=== PATIENT | male | born 1960 | race Caucasian/White ===

== ENCOUNTER 2023-06-18 10:01 | Outpatient (OUT) | payer OTHER, SELFPAY ==
--- NOTE | 2023-06-18 10:23 | ECG_ITS ---
[facility] Test Date: 2023-06-18 Pat Name: EMILY NASSAR Department: Room: - Gender: Male [employer]: : 1960 Requested By: [id number] Order Number: [id number] Reading MD: KATE CHOI Measurements Intervals [place] Rate: 67 P: 78 [place]: 190 QRS: 91 QRSD: 93 T: 70 QT: 364 QTc: 384 Interpretive Statements SINUS RHYTHM BORDERLINE RIGHT AXIS DEVIATION [QRS AXIS > 90] No previous ECG available for comparison Electronically Signed On 06-19-2023 7:12:48 EST by KATE CHOI
[2023-06-18 11:22] LABS: Basophils Absolute Auto 0.1 10^3/uL (0.0-0.1); Basophils Percent Auto 1.2 % (0.2-2.0); Eosinophils Absolute Auto 0.3 10^3/uL (0.0-0.7); Eosinophils Percent Auto 4.4 % (0.9-7.0); Hematocrit 42.9 % (42.0-54.0); Hemoglobin 14.7 g/dL (14.0-18.0); Immature Granulocytes Abs Auto 0.01 10^3/uL (0.00-0.03); Immature Granulocytes Pct Auto 0.2 % (0.0-0.5); Lymphocytes Absolute Auto 1.5 10^3/uL (1.2-3.8); Lymphocytes Percent Auto 26.6 % (20.5-60.0); Mean Corpuscular HGB Conc 34.3 g/dL (29.9-35.2); Mean Corpuscular Hemoglobin 30.2 pg (25.9-34.0); Mean Corpuscular Volume 88.1 fL (80.0-94.0); Mean Platelet Volume 10.4 fL (9.5-13.5); Monocytes Absolute Auto 0.7 10^3/uL (0.3-0.8); Monocytes Percent Auto 12.2 % (1.7-12.0); Neutrophils Absolute Auto 3.2 10^3/uL (1.4-6.5); Neutrophils Percent Auto 55.4 % (43.0-75.0); Platelet Count 230 10^3/uL (150-450); Red Blood Count 4.87 10^6/uL (4.70-6.10); Red Cell Distribution Width 12.2 % (11.0-15.0); White Blood Count 5.7 10^3/uL (4.0-11.0)
[2023-06-18 11:37] LABS: BUN Creatinine Ratio 12.7; Calcium 9.8 mg/dL (8.5-10.1); Carbon Dioxide 26.6 mmol/L (21.0-32.0); Chloride 105 mmol/L (98-107); Estimated GFR (African America >60 (>=60); Estimated GFR (Non-African Ame >60 (>=60); Glucose 71 mg/dL (74-106); Potassium 4.6 mmol/L (3.5-5.1); Sodium 140 mmol/L (136-145)
== END 2023-06-18 10:02 | disposition home or self-care (01) ==
PROVIDERS: Visit Provider Urology
DX: Z01.812 Encounter for preprocedural laboratory examination (principal); N20.0 Calculus of kidney
CPT/HCPCS: 36415; 80048; 85025; 93005

== ENCOUNTER 2023-07-02 11:29 | Day surgery (SDC) | payer OTHER, SELFPAY ==
[2023-06-18 10:45] VITALS: BP 136/82; PULSE 70; RESP 16; TEMP 36.3; O2SAT 97; BMI 29.1
[2023-07-02] VITALS (15 sets, daily range): BP systolic 155–206; BP diastolic 66–97; PULSE 59–82; RESP 12–62; TEMP 36.4–36.6; O2SAT 98–100; BMI 29.0
--- OUTSIDE RECORDS SUMMARY | 2023-07-02 11:41 | XMS_ITS | CCD ---
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 [employer] Name Role Phone Darwin Garcia Primary Care Physician Unavail able ELYSE RAMOS Admitting Unavailable ELYSE RAMOS Attending Unavailable Cyn Corona Attending Unavailable Cyn Corona Attending Unavailable ELYSE RAMOS Attending Unavailable Cyn Corona Attending Unavailable ELYSE RAMOS Admitting Unavailable RICHARDELYSE STARK Attending Unavailable RICHARDSISSY STARKELYSE E Referring Unavailable RICHARDSISSY STARKELYSE E Attending Unavailable RICHARD, ELYSE E Referring Unavailable RICHARD, ELYSE Zina Admitting Unavailable REFERRAL, SELF Attending Unavailable Xiomaraey, Darwin J Consulting Unavailable Rupertmley, Darwin J Consulting Unavailable Rupertmley, Darwin J Consulting Unavailable Rupertmley, Darwin J Consulting Unavailable Cromley, Darwin J Consulting Unavailable Cromley, Darwin J Consulting Unavailable Cromley, Darwin J Consulting Unavailable Rupertmley, Darwin J Consulting Unavailable Rupertmley, Darwin J Consulting Unavailable Rupertmley, Darwin J Consulting Unavailable Rupertmley, Darwin J Primary Care Physician Unavail able Problems Problem Classification Problem Date Documented Da te Episodic/Chronic Calculus of urinary tract (4 sources) Kidney stone; Translations: [Calculus of kidney] Onset: 04-01-2023 Episodic Genitourinary symptoms and ill-defined conditions (5 sources) Microscopic hematuria; Translations: [Asymptomatic microscopic hematuria] Onset: 04-01-2023 Episodic Other male genital disorders (5 sources) Disorder of male genital organ 02-11-2023 Episodic Other male genital disorders (5 sources) Swelling of scrotum 09-14-2020 Episodic Other male genital disorders (1 source) Hydrocele of testis; Translations: [Hydrocele, unspecified] Onset: 04-01-2023 Episodic Other nutritional; endocrine; and metabolic disorders (5 sources) Body mass index 25-29 - overweight 10-06-2019 Episodic Other screening for suspected conditions (not mental disorders or infectious disease) (1 source) Encounter for screening for malignant neoplasm of prostate; Translations: [Screening for malignant neoplasm done] Onset: 04-01-2023 Episodic Unclassified (5 sources) Asymptomatic microscopic hematuria 02-11-2023 Unclassified (5 sources) Patient encounter status 02-11-2023 Results Test Name Value Interpretation Reference Range Facil ity Lab Reportson 06-20-2023 Lab Reports [id number] IFF Normal [facility] Insurance Correspondenceon 1 08-17-2022 Insurance Correspondence [id number] Normal [facility] Patient Educationon 04-02-20 Patient Education Nephrology Dietary Guidelines to Help Prevent Kidney Stones Kidney stones are deposits of minerals and salts that form inside your kidneys. Your risk of developing kidney stones may be greater depending on your diet, your lifestyle, the medicines you take, and whether you have certain medical conditions. Most people can lower their chances of developing kidney stones by following the instructions below. Your dietitian may give you more specific instructions depending on your overall health and the type of kidney stones you tend to develop. What are tips for following this plan? Reading food labels ? Choose foods with no salt added or low-salt labels. Limit your salt (sodium) intake to less than 1,500 mg a day. ? Choose foods with calcium for each meal and snack. Try to eat about 300 mg of calcium at each meal. Foods that contain 200?500 mg of calcium a serving include: ? 8 oz (237 mL) of milk, lzngsbv-mxppxbrkqcle-usjuj milk, and calcium-fortifiedfruit juice. Calcium-fortified means that calcium has been added to these drinks. ? 8 oz (237 mL) of kefir, yogurt, and soy yogurt. ? 4 oz (114 g) of tofu. ? 1 oz (28 g) of cheese. ? 1 cup (150 g) of dried figs. ? 1 cup (91 g) of cooked broccoli. ? One 3 oz (85 g) can of sardines or mackerel. Most people need 1,000?1,500 mg of calcium a day. Talk to your dietitian about how much calcium is recommended for you. Shopping ? Buy plenty of fresh fruits and vegetables. Most people do not need to avoid fruits and vegetables, even if these foods contain nutrients that may contribute to kidney stones. ? When shopping for convenience foods, choose: ? Whole pieces of fruit. ? Pre-made salads with dressing on the side. ? Low-fat fruit and yogurt smoothies. ? Avoid buying frozen meals or prepared deli foods. These can be high in sodium. ? Look for foods with live cultures, such as yogurt and kefir. ? Choose high-fiber grains, such as whole-wheat breads, oat bran, and wheat cereals. Cooking ? Do not add salt to food when cooking. Place a salt shaker on the table and allow each person to add his or her own salt to taste. ? Use vegetable protein, such as beans, textured vegetable protein (TVP), or tofu, instead of meat in pasta, casseroles, and soups. Meal planning ? Eat less salt, if told by your dietitian. To do this: ? Avoid eating processed or pre-made food. ? Avoid eating fast food. ? Eat less animal protein, including cheese, meat, poultry, or fish, if told by your dietitian. To do this: ? Limit the number of times you have meat, poultry, fish, or cheese each week. Eat a diet free of meat at least 2 days a week. ? Eat only one serving each day of meat, poultry, fish, or seafood. ? When you prepare animal protein, cut pieces into small portion sizes. For most meat and fish, one serving is about the size of the palm of your hand. ? Eat at least five servings of fresh fruits and vegetables each day. To do this: ? Keep fruits and vegetables on hand for snacks. ? Eat one piece of fruit or a handful of berries with breakfast. ? Have a salad and fruit at lunch. ? Have two kinds of vegetables at dinner. ? Limit foods that are high in a substance called oxalate. These include: ? Spinach (cooked), rhubarb, beets, sweet potatoes, and Cymro chard. ? Peanuts. ? Potato chips, bhutanese fries, and baked potatoes with skin on. ? Nuts and nut products. ? Chocolate. ? If you regularly take a diuretic medicine, make sure to eat at least 1 or 2 servings of fruits or vegetables that are high in potassium each day. These include: ? Avocado. ? Banana. ? [place], prune, carrot, or tomato juice. ? Baked potato. ? Cabbage. ? Beans and split peas. Lifestyle ? Drink enough fluid to keep your urine pale yellow. This is the most important thing you can do. Spread your fluid intake throughout the day. ? If you drink alcohol: ? Limit how much you use to: ? 0?1 drink a day for women who are not . ? 0?2 drinks a day for men. ? Be aware of how much alcohol is in your drink. In the [place] one drink equals one 12 oz bottle of beer (355 mL), one 5 oz glass of wine (148 mL), or one 1? oz glass of hard liquor (44 mL). ? Lose weight if told by your health care provider. Work with your dietitian to find an eating plan and weight loss strategies that work best for you. General information ? Talk to your health care provider and dietitian about taking daily supplements. You may be told the following depending on your health and the cause of your kidney stones: ? Not to take supplements with vitamin C. ? To take a calcium supplement. ? To take a daily probiotic supplement. ? To take other supplements such as magnesium, fish oil, or vitamin B6. ? Take yggt-mao-rdiddzj and prescription medicines only as told by your health care provider. These include supplements. What foods should I limit? Limit your in (more content not included)... Normal [facility] Screenson 04-02-2023 Screens [id number] :127 Normal [facility] Screens [id number] :127 Normal [facility] Urology Office/Clinic Noteon 04-02-2023 Urology Office/Clinic Note Chief Complai nt F/U for CT results HPI Staff Pt previously seen by RYAN 02/11/23 as a new pt due to Hydrocele & Microscopic Hematuria. PSA drawn at that time 2.6 NEG C&S at that time UA *4-20 RBC's CBC/CMP also drawn Scrotal US 02/14/23 CTU 03/27/23 Pt is scheduled for Cysto & Cytology 04/07/23 w/KML IPSS 5 CACHORRO 24 Dysuria: _denies Incomplete bladder emptying: denies Hematuria: denies visible blood Frequency: _every couple hours Urgency: _denies Nocturia: most 2x nightly Stream: denies hesitation, normal stream Leaking: _denies Post void dripping: denies Wearing pads/ Depends: denies Urge incontinence: denies Stress incontinence: denies Incontinence without Sensory Awareness: denies Abdominal pain: denies Flank pain: denies Sexual complaints: denies History of Present Illness Tests reviewed: reviewed UA, Scrotal US and CTU. I have reviewed the previous health record information and history for this patient from Elyse Ramos PA-C. I have reviewed and verified the staff HPI to be accurate for this encounter. There have been no associated fever, chills, flank pain, or blood in the urine. Denies any urinary infections since last encounter. Review of Systems PHQ Score Initial Depression Screen Score: 0 ROS - Provider Constitutional: denies weight loss, denies hot flashes. Eyes: denies eye problems. Gastrointestinal: denies nausea, denies vomiting. Cardiovascular: denies chest pain or angina. Integumentary: no dryness Musculoskeletal: denies musculoskeletal symptoms. ENMT: denies otolaryngeal symptoms. Respiratory: no shortness of breath. Heme/Lymph: denies easy bleeding tendency, denies easy bruising tendency. Psychiatric: no confusion, no anxiety. Genitourinary: See HPI. Physical Exam Vitals & Measurements T: 36.8 ?C(Temporal Artery) HR: 88(Peripheral) BP: 142/78 HT: 70 in HT: 177 cm WT: 89 kg WT: 195.8 lb BMI: 28.41 General Appearance: alert, no distress, well nourished, well developed male. Genitourinary: Flank Pain: none. Bladder: nonpalpable. Assessment/Plan 63 yo male here for follow up of AMH, L hydrocele and new findings of kidney stone in setting of solitary kidney s/p donor nephrectomy 1. Hydrocele (N43.3: Hydrocele, unspecified) Scrotal US 09/18/20 - small left and trace right hydroceles. small bilat epididymal head cysts, otherwise neg scrotal US Scrotal US 02/14/23 - large Lt hydrocele, inc from prior Denies fluctuation in size. Discussed findings with pt. Pt states that its not bothersome, seems to have grown bigger. Discussed treatment options if becomes symptomatic such as hydrocelectomy. Risks/benefits discussed Advised pt that the scrotal support does not reduce the size and just relieve bothersome sxs. -Cont monitoring, conservative mgmt 2. Asymptomatic microscopic hematuria (R31.21: Asymptomatic microscopic hematuria) CTU 03/27/23 - No urgent findings UCx 02/11/23 - negative, UA RBC 4-20 Ua today shows moderate blood. High risk based on age per AUA guidelines. Discussed the reasoning of the cysto and the risks and benefits were counseled. No hx of cancer. Pt had donated his kidney to his sister. Counseled on risk factors. Denies visible blood in urine. Discussed potential etiologies including malignancy, stone, cannot exclude concomitant processes. Advised pt that if he would like to cancel his cysto he undergoes ureteroscopy for stone treatment, as bladder would be evaluated at that time. Risk of missed malignancy were discussed. -Cont with cysto as scheduled friday under local. The risks and benefits for cystoscopy have been discussed. The risks include bleeding, infection, and irritation of the bladder and urinary channel, among others. The patient, after being informed of procedural details and after questions have been answered, wishes to proceed. Full informed consent has been obtained. Will order Local anesthesia. 3. 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 PSA 03/06/23 - 2.6 Prostate Volume 75gms. Denies bother IPSS 5 Declines medical treatment at this time see #5 4. Renal stone (N20.0: Calculus of kidney) CTU 03/27/23 - renal stone 8 mm left upper pole. Solitary kidney Discussed imaging findings with pt. Discussed management options including monitoring vs intervention including extracorporeal shockwave lithotripsy vs ureteroscopy with laser lithotripsy/stone basket extraction possible stent. Risks/benefits of each were discussed including but not limited to: monitoring- growth, spontaneous passage, renal failure, infection, pain; ESWL- bleeding, hematoma, pain, infection, inability to break up the stone, ureteral obstruction, cardiac arrhythmias, damage to surrounding structures and need for additional procedures; ureteroscopy - bleeding, pain, infection, damage to surrounding structures, ureteral perforation, stricture, inability to t (more content not included)... Normal [facility] Comment on above: Result Comment: Elec tronically Signed By: Cyn Corona MD\.br\Date and Time Signed: 04/02/23 12:26 EDT\.br\Electronically Co-Signed By: Keyana Stauffer\.br\Date and Time Co-Signed: 04/02/23 12:[address] Urogramon 03-27-2023 CT Urogram Exam Date/Time: 03/27/2023 10:48 EDT Reason for Exam: R31.21;Other (please specify) Report IMPRESSION: Status post left nephrectomy. There is a 8 mm heavily calcified stone in the inferior pole of the right kidney. There is no hydronephrosis or hydroureter, there is prompt nephrogram with prompt excretion of contrast. The urinary bladder is within normal limits. The prostate gland there is an estimated volume of 75 mm and multiple calcifications in the right posterior cerebral. Please refer to recent ultrasound for discussion of the large left hydrocele. EXAMINATION: CT Urogram HISTORY: R31.21 COMPARISON: Scrotal ultrasound from 02/14/2023 TECHNIQUE: Contiguous axial CT sections of the abdomen and pelvis. A triple phase study is performed before, during and after administration of IV contrast to perform a CT urogram.. Sagittal and coronal reformats have been obtained. All CT scans at this facility use dose modulation, iterative reconstruction, and/or weight based dosing when appropriate to reduce radiation dose to as low as reasonably achievable. FINDINGS Lung bases:Visualized lung bases show no significant pathology Liver: The visualized portions of the liver are normal in size and attenuation. There are no focal solid or cystic lesions. There is no intra or extrahepatic bile duct dilatation. Gallbladder: No calcified gallstones. Normal gallbladder wall. No pericholecystic fluid. Spleen: There are no focal lesions or calcifications in the visualized portions of the spleen. There is no splenomegaly Pancreas: The pancreas is normal in size and attenuation without focal lesions or dilatation of the pancreatic duct. Adrenal glands are negative. Kidneys: The right kidney is without solid or cystic lesions. There is no Report hydronephrosis. There is a 8 mm heavily calcified stone in the inferior pole of the right kidney. There is a 1.5 cm cyst in the inferior pole of the right kidney. There is a prompt nephrogram after contrast with prompt excretion of contrast into nondilated collecting system, there is no hydroureter. Status post left nephrectomy. Urinary bladder: The urinary bladder is within normal limits. There are no radiopaque filling defects or wall abnormalities. The prostate gland measures 5.6 x 4.6 cm transverse by 5.6 cm craniocaudal Estimated volume mL. There are multiple calcifications in the right posterior zone. Bowel: There are no distended loops of bowel. The appendix is unremarkable. The colon is within normal limits without surrounding inflammation. Nodes: No lymphadenopathy. Aorta: There is no abdominal aortic aneurysm. Peritoneum: No free fluid or free air. Pelvis: There are no solid or cystic lesions. Abdominal wall: The abdominal wall is intact. Bones :There are no acute osseous changes. Soft tissues: There is a large left hydrocele constipation. Recent ultrasound. Ordering Provider: , FINAL REPORT Dictated: 03/27/2023 12:33 pm Yaw Sr MD, V. Signed (Electronic Signature): 03/27/2023 12:33 pm Signed by: Yaw Sr MD, V. Transcribed by: DAISY Technologist: AO Technical Comments GFR (mL/min/1/73m2) <60 Contrast: Isovue 300 Contrast amount in ml's: 100 Rectal Contrast Given? No Normal [facility] Consent for Treatmenton 03-14 Consent for Treatment [id number]:127 Normal [facility] Insurance Correspondenceon 0 03-18-2023 Insurance Correspondence [id number]#[id number]:127 Normal [facility] Consent for Treatmenton 02-12 Consent for Treatment [id number]#[id number]:127 Normal [facility] Gary 2023 ALT No additional P-5'-P [Catalytic activity/Vol] 21 Int._Unit/L Normal 6-46 [facility] Comment on above: Performed By: #### 2 821231, 9848488, 5995570, 01357762, 9759306, 64623702, 7024244 ####[facility] [address] [place] [address] Kg 2023 AST [Catalytic activity/Vol] 20 Int._Unit/L Normal 5-4 3 [facility] Comment on above: Performed By: #### 2 707892, 8944343, 3132872, 36319756, 7189358, 28881545, 7440566 ####[facility] [address] [place] [address] BMPon 2023 Anion gap [Moles/Vol] 10 mmol/L Normal 6-16 [facility] Comment on above: Performed By: #### 2 583117, 3826341, 5627288, 69760652, 9217438, 51908065, 3238550 ####[facility] [address] [place] [address] Calcium [Mass/Vol] 10.3 mg/dL Normal 8.9-11.1 [facility] Comment on above: Performed By: #### 2 230569, 8736441, 3710062, 78586759, 7694887, 21497261, 7784246 ####[facility] [address] [place] [address] Chloride [Moles/Vol] 111 mmol/L Normal 101-111 [facility] Comment on above: Performed By: #### 2 699237, 8587678, 2193901, 80098501, 9217301, 23756512, 2014603 ####[facility] [address] [place] [address] CO2 [Moles/Vol] 26 mmol/L Normal 21-31 [facility] Comment on above: Performed By: #### 2 843077, 6354690, 2518951, 23809548, 1399576, 49607786, 2470459 ####[facility] [address] [place] [address] Creatinine [Mass/Vol] 1.2 mg/dL Normal 0.5-1.3 [facility] Comment on above: Performed By: #### 2 513818, 0904297, 3222821, 39416831, 6066044, 37183076, 6745314 ####[facility] [address] [place] [address] Glucose [Mass/Vol] 85 mg/dL Normal 55-199 [facility] Comment on above: Result Comment: If t his glucose result represents a fasting glucose, interpretation should refer to the following reference range: 55-99 mg/dL Performed By: #### 2 678780, 6159584, 8030501, 35102733, 0028254, 27932618, 4024287 ####[facility] [address] [place] [address] Potassium [Moles/Vol] 4.7 mmol/L Normal 3.5-5.3 [facility] Comment on above: Performed By: #### 2 384603, 3454846, 7956498, 05934678, 1471668, 80391256, 0705520 ####[facility] [address] [place] [address] Sodium [Moles/Vol] 142 mmol/L Normal 135-145 [facility] Comment on above: Performed By: #### 2 224401, 9943043, 4553871, 63950380, 2062494, 21203242, 3101459 ####[facility] [address] [place] [address] Urea nitrogen [Mass/Vol] 15 mg/dL Normal 5-21 [facility] Comment on above: Performed By: #### 2 360459, 5760300, 1292835, 58229623, 8493287, 01431833, 8776224 ####[facility] [address] [place] [address] Urea nitrogen/Creatinine [Ma ss ratio] 12 No Units Normal 10-20 [facility] Comment on above: Performed By: #### 2 273826, 1463767, 6182234, 72490185, 8629194, 51705958, 8530675 ####[facility] [address] [place] [address] CBC w/Indiceson 2023 Erythrocyte distribution wid th (RBC) [Ratio] 13.4 % Normal 10.9-14.2 [facility] Comment on above: Performed By: #### 2 553733, 8790980, 2387106, 95739029, 0876822, 49103438, 4903485 ####[address] [place] [address] Hematocrit (Bld) [Volume fraction] 44.3 % Normal 37.7-49.0 [facility] Comment on above: Performed By: #### 2 354925, 9597501, 9516627, 23704591, 1289203, 82969627, 2032214 ####[facility] [address] [place] [address] Hemoglobin (Bld) [Mass/Vol] 15.5 g/dL Normal 13.5-17. 5 [facility] Comment on above: Performed By: #### 2 188390, 2209532, 8416514, 74487222, 3455602, 25884817, 9026951 ####[facility] [address] [place] [address] MCH (RBC) [Entitic mass] 30.7 pg Normal 27.0-34.0 [facility] Comment on above: Performed By: #### 2 762180, 8908730, 7840259, 97697943, 2406122, 92489096, 8643651 ####[address] [place] [address] MCHC (RBC) [Mass/Vol] 35.1 g/dL Normal 31.4-36.0 [facility] Comment on above: Performed By: #### 2 062869, 8580836, 8650413, 55631474, 8938974, 88096298, 4512367 ####[facility] [address] [place] [address] MCV (RBC) [Entitic vol] 87.5 fL Normal 80.0-100.0 F [facility] Comment on above: Performed By: #### 2 437428, 0644852, 1678737, 64054417, 8375010, 10989533, 9090092 ####[facility] [address] [place] [address] Platelet mean volume (Bld) [Entitic vol] 8.8 fL Normal 6.4-10.8 [facility] Comment on above: Performed By: #### 2 208680, 6629632, 8144983, 66085025, 0921650, 55657102, 9755134 ####[facility] [address] [place] [address] Platelets (Bld) [#/Vol] 236.0 E9/L Normal 150.0-500.0 [facility] Comment on above: Performed By: #### 2 139417, 1646796, 9324306, 61475123, 6654012, 85273875, 2370940 ####[address] [address] RBC (Bld) [#/Vol] 5.1 E12/L Normal 4.3-5.9 [facility] Comment on above: Performed By: #### 2 300166, 8632820, 3466138, 03689283, 5274345, 14483956, 8082096 ####[facility] [address] [place] [address] WBC corrected for nucl RBC A uto (Bld) [#/Vol] 6.1 E9/L Normal 4.0-11.0 [facility] Comment on above: Performed By: #### 2 811355, 1191867, 9590335, 81092365, 7849526, 11775030, 5753955 ####[facility] [address] [place] [address] Lipid Panelon 2023 Cholesterol [Mass/Vol] 198 mg/dL Normal 120-200 [facility] Comment on above: Performed By: #### 2 420826, 8887862, 0051897, 42592628, 7989720, 82995311, 1772718 ####[facility] [address] [place] [address] Cholesterol in HDL [Mass/Vol] 45 mg/dL Invalid Interpretation Code [facility] Comment on above: Result Comment: HDL > or equal to 60 mg/dL: Low cardiovascular risk HDL < 40 mg/dL : High cardiovascular risk Performed By: #### 2 072047, 8665554, 0196862, 51303496, 2546594, 68592221, 8538022 ####[facility] [address] [place] [address] Cholesterol in LDL [Mass/Vol] 125 mg/dL Normal <=129 [facility] Comment on above: Performed By: #### 2 049589, 4636996, 4600320, 50161633, 8082138, 02918601, 3224451 ####[facility] [address] [place] [address] Cholesterol in VLDL [Mass/Vol] 13 mg/dL Normal 7-40 [facility] Comment on above: Performed By: #### 2 247595, 6419914, 5263120, 02354124, 6767290, 63940472, 7793981 ####[facility] [address] [place] [address] Triglyceride [Mass/Vol] 67 mg/dL Normal <=149 F [facility] Comment on above: Performed By: #### 2 344004, 6903246, 4402480, 29033428, 9635900, 24342677, 7697380 ####[facility] [address] [place] [address] PSA Totalon 2023 Prostate specific Ag [Mass/Vol] 2.6 ng/mL Normal 0.1- 3.5 [facility] Comment on above: Result Comment: The concentration of PSA determined by different manufacturers can vary due to differences in assay methods and reagent specificity. Values obtained from different assay methods cannot be used interchangeably. The methodology used for this result was chemiluminescence using [employer]'s Access Hybritech PSA reagent. Performed By: #### 2 [id number], [id number], [id number], [id number], [id number], [id number], [id number] ####[facility] [address] [place] [address] eGFRon 2023 GFR/1.73 sq M.predicted katina g non-blacks MDRD (S/P/Bld) [Vol rate/Area] 68 mL/min/1.73 m2 Normal >=[address] [facility] Comment on above: Order Comment: Order added by Discern Expert. Result Comment: Cmm Technician katie kidney disease could be indicated at eGFR's of less than 60 mL/min/1.73m2. Kidney failure is indicated at less than 15 mL/min/1.73m2. Performed By: #### 2 [id number], [id number], [id number], [id number], [id number], [id number], [id number] ####[facility] [place] [address] US Scrotum (Contents)on US Scrotum (Contents) Exam Date/Time: 02/14/2023 16:15 EDT Reason for Exam: hydrocele;Other (please specify) Report IMPRESSION: LARGE LEFT-SIDED HYDROCELE. CLINICAL HISTORY: Hydrocele. COMPARISON: Scrotal ultrasound 09/18/2020 COMMENT: The right testicle measures approximately 4.8 cm x 3.2 cm x 2.2 cm with an estimated volume of 17.8 cm3. The left testicle measures approximately 4.5 cm x 3.2 cm x 3.9 cm with an estimated volume of 29.9 cm3. Normal sonographic appearance of both testicles. Normal blood flow is identified to both testicles. The epididymides measure 0.9 cm on the right and 1.0 cm on the left. Epididymal head cysts again identified. Interval increase in size of a left-sided hydrocele. No varicocele. Report Ordering Provider: , FINAL REPORT Dictated: 02/18/2023 10:10 am Darwin Godinez DO Signed (Electronic Signature): 02/18/2023 10:10 am Signed by: Darwin Godinez DO Transcribed by: DAISY Technologist: DIEGO [facility] Screenson 02-17-2023 Screens [id number] :127 [facility] Consent for Treatmenton Consent for Treatment [id number]:127 [facility] C Urineon 02-13-2023 Bacteria identified Cx Nom (U) Microbiology PROCEDURE: Urine Culture [R1] SOURCE: U CleanCatch BODY SITE: COLLECTED DATE/TIME: 02/11/2023 14:00 EDT RECEIVED DATE/TIME: 02/11/2023 19:40 EDT START DATE/TIME: 02/11/2023 19:41 EDT FREE TEXT SOURCE: ELYSE RAMOS PA-C, PA-C, ELYSE Izaguirre FINAL REPORTS Final Report [] Verified Date/Time: 02/13/2023 08:48 EDT No growth at 2 days. Performing Locations R1: This test was performed at: [facility], [address] [place] [address], [facility] , , [facility] Comment on above: Performed By: #### 2 [id number] ####[facility] [address] [place] [address] Ambulatory Visit Summaryon 0 02-11-2023 Ambulatory Visit Summary EMILY NASSAR :1960 Visit Date:02/11/2023 Ambulatory Visit Instructions Your Diagnosis Hydrocele Asymptomatic microscopic hematuria Screening PSA (prostate specific antigen) Tests Performed Urnls Dip Stick Auto w/o Microscopy POC 85541 Your Care Team Attending Physician - ELYSE RAMOS PA-C Primary Care Physician - Darwin Garcia DO Procedures Performed left kidney donation, Vasectomy. Discharge Vitals Heart Rate (Peripheral) 78 Blood Pressure 138/89 Height 177 cm Height 70 in Weight 89 kg Weight 195.8 lb BMI 28.41 What to do next You Need to Schedule the Following Appointments Follow Up with ELYSE RAMOS PA-C, BELEN When: Where: [address] [facility] [place] [address] You Need to Complete the Following PSA Total, Blood, Routine collect, 02/11/23, Order for future visit, Lab Collect, Screening PSA (prostate specific antigen), Print Label By Order Location US Scrotum (Contents), 02/11/23, Routine, Order for future visit, Transport Mode: Ambulatory, Reason: Other (please specify), Reason: hydrocele, No, Hydrocele, pp_set_radiology_subspecialty, [facility] [place] Test Results Urnls Dip Stick Auto w/o Microscopy POC 66603 (02/11/2023) Bilirubin Urine Dipstick - 1+ Small Blood Urine Dipstick - 3+ Large Glucose Urine Dipstick - Negative Ketones Urine Dipstick - Negative Leukocytes Urine Dipstick - Negative Nitrite Urine Dipstick - Negative Protein Urine Dipstick - Negative Specific [place] Urine Dipstick - >=1.030 Urine Appearance Urine Dipstick - Clear Urine Color Urine Dipstick - Light yellow Urobilinogen Urine Dipstick - Normal 0.2-1 EU/dl pH Urine Dipstick - 5.5 Allergies No Known Allergies Problems Ongoing - Any problem that you are currently receiving treatment for. Asymptomatic microscopic hematuria BMI 27.0-27.9,adult Hydrocele Screening PSA (prostate specific antigen) Scrotal swelling [employer] Hematuria, Adult Hematuria is blood in the urine. Blood may be visible in the urine, or it may be identified with a test. This condition can be caused by infections of the bladder, urethra, kidney, or prostate. Other possible causes include: ? Kidney stones. ? Cancer of the urinary tract. ? Too much calcium in the urine. ? Conditions that are passed from parent to child (inherited conditions). ? Exercise that requires a lot of energy. Infections can usually be treated with medicine, and a kidney stone usually will pass through your urine. If neither of these is the cause of your hematuria, more tests may be needed to identify the cause of your symptoms. It is very important to tell your health care provider about any blood in your urine, even if it is painless or the blood stops without treatment. Blood in the urine, when it happens and then stops and then happens again, can be a symptom of a very serious condition, including cancer. There is no pain in the initial stages of many urinary cancers. Follow these instructions at home: Medicines ? Take ojgj-hfh-swhwake and prescription medicines only as told by your health care provider. ? If you were prescribed an antibiotic medicine, take it as told by your health care provider. Do not stop taking the antibiotic even if you start to feel better. Eating and drinking ? Drink enough fluid to keep your urine pale yellow. It is recommended that you drink 3?4 quarts (2.8?3.8 L) a day. If you have been diagnosed with an infection, drinking cranberry juice in addition to large amounts of water is recommended. ? Avoid caffeine, tea, and carbonated beverages. These tend to irritate the bladder. ? Avoid alcohol because it may irritate the prostate (in males). General instructions ? If you have been diagnosed with a kidney stone, follow your health care provider's instructions about straining your urine to catch the stone. ? Empty your bladder often. Avoid holding urine for long periods of time. ? If you are female: ? After a bowel movement, wipe from front to back and use each piece of toilet paper only once. ? Empty your bladder before and after sex. ? Pay attention to any changes in your symptoms. Tell your health care provider about any changes or any new symptoms. ? It is up to you to get the results of any tests. Ask your health care provider, or the department that is doing the test, when your results will be ready. ? Keep all follow-up visits. This is important. Contact a health care provider if: ? You develop back pain. ? You have a fever or chills. ? You have nausea or vomiting. ? Your symptoms do not improve after 3 days. ? Your symptoms get worse. Get help right away if: ? You develop severe vomiting and are unable to take medicine without vomiting. ? You develop severe pain in your back or abdomen even though you are taking medicine. ? (more content not included)... Normal [facility] Patient Educationon 02-12-20 23 Patient Education Urology Hematuria, Adult Hematuria is blood in the urine. Blood may be visible in the urine, or it may be identified with a test. This condition can be caused by infections of the bladder, urethra, kidney, or prostate. Other possible causes include: ? Kidney stones. ? Cancer of the urinary tract. ? Too much calcium in the urine. ? Conditions that are passed from parent to child (inherited conditions). ? Exercise that requires a lot of energy. Infections can usually be treated with medicine, and a kidney stone usually will pass through your urine. If neither of these is the cause of your hematuria, more tests may be needed to identify the cause of your symptoms. It is very important to tell your health care provider about any blood in your urine, even if it is painless or the blood stops without treatment. Blood in the urine, when it happens and then stops and then happens again, can be a symptom of a very serious condition, including cancer. There is no pain in the initial stages of many urinary cancers. Follow these instructions at home: Medicines ? Take appr-ydt-vqpqtcx and prescription medicines only as told by your health care provider. ? If you were prescribed an antibiotic medicine, take it as told by your health care provider. Do not stop taking the antibiotic even if you start to feel better. Eating and drinking ? Drink enough fluid to keep your urine pale yellow. It is recommended that you drink 3?4 quarts (2.8?3.8 L) a day. If you have been diagnosed with an infection, drinking cranberry juice in addition to large amounts of water is recommended. ? Avoid caffeine, tea, and carbonated beverages. These tend to irritate the bladder. ? Avoid alcohol because it may irritate the prostate (in males). General instructions ? If you have been diagnosed with a kidney stone, follow your health care provider's instructions about straining your urine to catch the stone. ? Empty your bladder often. Avoid holding urine for long periods of time. ? If you are female: ? After a bowel movement, wipe from front to back and use each piece of toilet paper only once. ? Empty your bladder before and after sex. ? Pay attention to any changes in your symptoms. Tell your health care provider about any changes or any new symptoms. ? It is up to you to get the results of any tests. Ask your health care provider, or the department that is doing the test, when your results will be ready. ? Keep all follow-up visits. This is important. Contact a health care provider if: ? You develop back pain. ? You have a fever or chills. ? You have nausea or vomiting. ? Your symptoms do not improve after 3 days. ? Your symptoms get worse. Get help right away if: ? You develop severe vomiting and are unable to take medicine without vomiting. ? You develop severe pain in your back or abdomen even though you are taking medicine. ? You pass a large amount of blood in your urine. ? You pass blood clots in your urine. ? You feel very weak or like you might faint. ? You faint. Summary ? Hematuria is blood in the urine. It has many possible causes. ? It is very important that you tell your health care provider about any blood in your urine, even if it is painless or the blood stops without treatment. ? Take wayz-lnt-cxphbqo and prescription medicines only as told by your health care provider. ? Drink enough fluid to keep your urine pale yellow. This information is not intended to replace advice given to you by your health care provider. Make sure you discuss any questions you have with your health care provider. Document Revised: 02/28/2021 Document Reviewed: 02/28/2021 [employer] Patient Education ? 2022 [employer] Normal [facility] Urinalysison 02-11-2023 Bacteria LM Ql (Urine sed) TRACE Normal Trace [facility] Comment on above: Performed By: #### 1 [id number] ####[facility] [address] [facility] [place] [address] Bilirubin Ql (U) Negative Normal Negative [facility] Comment on above: Performed By: #### 1 [id number] ####[facility] [address] [facility] [place] [address] Clarity (U) CLOUDY Abnormal Clear [facility] Comment on above: Performed By: #### 1 [id number] ####[facility] [address] [address] Color (U) YELLOW Normal Yellow [facility] Comment on above: Performed By: #### 1 [id number] ####[address] [address] Crystals LM Ql (Urine sed) Present Normal [facility] Comment on above: Performed By: #### 1 [id number] ####[address] [address] Epithelial cells.squamous LM .HPF (Urine sed) [#/Area] 0-2 Normal 0-2 [facility] Comment on above: Performed By: #### 1 [id number] ####[address] [address] Glucose Test strip (U) [Mass/Vol] Negative Normal Negative [facility] Comment on above: Performed By: #### 1 [id number] ####[address] [address] Hemoglobin Ql (U) 2+ Abnormal Negative [facility] Comment on above: Performed By: #### 1 [id number] ####[address] [address] Ketones (U) [Mass/Vol] Negative Normal Negative [facility] Comment on above: Performed By: #### 1 [id number] ####[address] [address] [place].plasma/[place].RBC ( Bld) [Mass ratio] 4-20 Normal 0-3 [facility] Comment on above: Performed By: #### 1 [id number] ####[address] [address] Nitrite Ql (U) Negative Normal Negative [facility] Comment on above: Performed By: #### 1 [id number] ####[address] [address] pH (U) 6.0 [pH] Invalid Interpretation Code 5.0-9.0 [facility] Comment on above: Performed By: #### 1 [id number] ####[facility] [address] [place] [address] Protein (U) [Mass/Vol] Negative Normal Negative [facility] Comment on above: Performed By: #### 1 [id number] ####[address] [address] Specific gravity (U) [Rel density] >=1.030 Invalid Interpretation Code 1.005-1.030 [facility] Comment on above: Performed By: #### 1 [id number] ####[address] [address] Type of Urine collection method Clean Catch Normal [facility] Comment on above: Performed By: #### 1 [id number] ####[address] [address] Urobilinogen Qn (U) 0.2 {Nighat'U}/dL Normal 0.0-1.0 [facility] Comment on above: Performed By: #### 1 [id number] ####[facility] [address] [place] [address] WBC Auto Ql (U) Negative Normal Negative [facility] Comment on above: Performed By: #### 1 [id number] ####[facility] [address] [place] [address] WBC LM.HPF (Urine sed) [#/Area] 0-5 Normal 0-5 [facility] Comment on above: Performed By: #### 1 [id number] ####[address] [address] Urology Office/Clinic Noteon 02-11-2023 Urology Office/Clinic Note Chief Complaint New Pt. HPI Staff Pt self scheduled appt today due to Lt Testicular swelling. Pt is a new pt, never before seen in our office. Was seeing Dr. Sims ([place]) Left testicle swelled in 2020 Scrotal US 09/18/20 He states lately it has not been bad pain, just uncomfortable feeling. He has not taking any medicine for this. IPSS today-4 Dysuria: _denies Incomplete bladder emptying: denies Hematuria: denies visible blood Frequency: _every few hours Urgency: denies Nocturia: _2x night Stream: denies, normal steady stream Leaking: denies Post void dripping: denies Wearing pads/ Depends: denies Urge incontinence: denies Stress incontinence: denies Incontinence without Sensory Awareness: denies Abdominal pain: denies Flank pain: denies *Nothing on Clinisync. History of Present Illness staff HPI reviewed and agree. Review of Systems PHQ Score Initial Depression Screen Score: 0 no fever, chills, malaise, myalgia. no rash/lesions. no chest pain, palpitations, or SOB. no abdominal pain, nausea, vomiting. no unilateral calf swelling, redness, pain Physical Exam Vitals & Measurements HR: 78(Peripheral) BP: 138/89 HT: 70 in HT: 177 cm WT: 89 kg WT: 195.8 lb BMI: 28.41 General: nontoxic, NAD Mouth: moist mucosa Lungs: normal respiratory effort Cardio: regular rate, good distal perfusion Abdomen: nondistended, no suprapubic distention or tenderness, no CVA tenderness Neurologic: Grossly normal Skin: No rashes or suspicious lesions : right scrotum normal. left scrotum w marked swelling, approximately the size of a navel orange, without erythema/warmth/tenderness. due to overlying swelling it's difficult to fully palpate the L testicle. I don't appreciate any discrete testicular nodules on either side and no tenderness to epididymis. BABS benign without discrete nodules. Assessment/Plan New to our office IPSS 4, QOL 1 Hx of vasectomy 2006 1. Hydrocele (N43.3: Hydrocele, unspecified) reports of left sided testicular swelling present for a few years. seems to be getting a little larger. wasn't sure if it needs taken care of or not. Scrotal US 09/18/20 small left and trace right hydroceles. small bilat epididymal head cysts, otherwise neg scrotal US Discussed the options for his hydrocele. There is no absolute indication that this needs repaired - depends on how much it interferes with his daily life/bothers him. Explained that we don't often drain hydroceles percutaneously (his PCP had mentioned this to him) due to risk of recurrence. Typical surgical repair involves a scrotal incision, removing the sac of fluid, and, perhaps, removing part or all of the sac itself. There is a 10-15% chance of recurrence of this scrotal fluid collection, which may require another procedure in the future. Pt states it does not bother him enough to warrant surgical intervention at this time. Discussed conservative measures: 1. scrotal support 2. elevate via towel method to decrease fluid/swelling -will obtain scrotal US @ [facility] to ensure no major changes (aside from size). 2. Asymptomatic microscopic hematuria (R31.21: Asymptomatic microscopic hematuria) AUA microhematuria risk assessment: age FM & M >60 : high smoking hx never a smoker RBCs on UA unknown, will send for microscopy and culture additional risk factors : irritative LUTS no family hx cancer no occupational exposure yes hx chronic indwelling foreign body in urinary tract no previously low risk with no prior imaging/cysto : no, first episode based on the above risk assessment the pt is considered unknown risk. will send urine for microscopy and based on RBCs will proceed with next steps which have been discussed w pt in detail to include cysto, cyto, and CTU as this pt is high risk based on above assessment. 3. Screening PSA (prostate specific antigen) (Z12.5: Encounter for screening for malignant neoplasm of prostate) no recent or previous PSAs. discussed recommendations. PSA to be drawn at the time of scrotal US -ordered @ [facility] Follow-up With When Contact Information RICHARD WOO, ELYSE Izaguirre, URL [address] [place] [address] Additional Instructions: scrotal US, PSA, micro/culture Patient Education Hematuria, Adult Documentation recorded by the matt Gallo accurately reflects the services(s) I performed and decisions made by me. Authenticated by Elyse Ramos PA-C on 02/11/2023 14:39:31. ICourtney, personally scribed for Elyse Ramos PA-C on 02/11/2023 14:28:42. . Problem List/Past Medical History Ongoing Asymptomatic microscopic hematuria BMI 27.0-27.9,adult Hydrocele Screening PSA (prostate specific antigen) Scrotal swelling Historical No qualifying data Procedure/Surgical History left kidney donation, Vasectomy. Medications No active medications Allergies No Known Allergies (more content not included)... Normal [facility] Comment on above: Result Comment: Elec tronically Signed By: ELYSE RAMOS PA-C\.br\Date and Time Signed: 02/11/23 14:39 EDT\.br\Electronically Co-Signed By: Courtney Gallo\.br\Date and Time Co-Signed: 02/11/23 14:29 EDT Vital Signs Date Time Vital Sign Value Performing Clinician Facility 04-02-2023 11:03-0400 Blood Pressure Location Cyn Cj [facility] 04-02-2023 11:03-0400 Body temperature 98.24 [degF] Cyn Lue [facility] 04-02-2023 11:03-0400 Diastolic blood pressure 78 mm[Hg] Cyn Lue [facility] 04-02-2023 11:03-0400 Heart rate 88 /min Cyn Lue [facility] 04-02-2023 11:03-0400 Systolic blood pressure 142 mm[Hg] Cyn Lue [facility] Encounters Encounter Date Encounter Type Care Provider Facility Start: 07-09-2023 ambulatory Cyn M. Lue Facility:[facility] Start: 07-02-2023 ambulatory Cyn M. Lue Facility:C D:[id number] Start: 05-22-2023 End: 06-24-2023 Pre-admission assessment Cyn M. Lue [facility] Start: 04-02-2023 End: 09-21-2023 [facility] Start: 04-02-2023 End: 04-02-2023 Patient encounter procedure [facility] Start: 03-27-2023 End: 03-28-2023 ambulatory ELYSEYOLI RAMOS Facility:[facility] Start: 03-27-2023 End: 03-27-2023 Patient encounter procedure ELYSE RAMOS [facility] Start: 03-11-2023 End: 04-08-2023 Pre-admission assessment Cyn Corona [facility] Start: 2023 End: 03-07-2023 ambulatory SELF REFERRAL Facility:[facility] Start: 02-14-2023 End: 02-15-2023 ambulatory ELYSE RAMOS Facility:[facility] Start: 02-14-2023 End: 02-14-2023 Patient encounter procedure ELYSE RAMOS [facility] Start: 02-11-2023 End: 02-12-2023 ambulatory ELYSE RAMOS Facility:[facility] Procedures Date Procedure Procedure Detail Performing Clinician left kidney donation 1 ZACH RAMOS Comment on above: December 2010 Vasectomy ELYSE RAMOS Immunizations Immunization Date Immunization Notes Care Provider Fa cility NEGATED: Highlighted row has not occurred!09-14-2020 influenza virus vaccine, unspecified formulation ELYSE RAMOS [facility] [place] Payers Date Payer Category Payer Private Health Insurance [id number] 1960 Unknown [id number] 2.16.8 [id number] 1960 Unknown [id number] 2.16.8 [id number] 1960 Unknown [id number] 2.16.8 [id number] 1960 Unknown [id number] 2.16.8 [id number] 1960 Unknown [id number] 2.16.8 [id number] 1960 Unknown [id number] 2.16.8 [id number] 1960 Unknown [id number] 2.16.8 [id number] Social History Date Type Detail Facility Start: 02-11-2023 End: 04-02-2023 Tobacco smoking status Never smoked tobacco (finding) [facility] Tobacco smoking status Never [facility] Sex Assigned At Male [facility] Functional Status Date Assessment Result Facility 04-02-2023 Functional Status N/A [facility] Hospital Discharge instructions 04-02-2023 Note Date & Type Note Facility 04-02-2023 Hospital Discharg e instructions Patient Education 04/02/2023 11:54:38 Dietary Guidelines to Help Prevent Kidney Stones Dietary Guidelines to Help Prevent Kidney Stones Kidney stones are deposits of minerals and salts that form inside your kidneys. Your risk of developing kidney stones may be greater depending on your diet, your lifestyle, the medicines you take, and whether you have certain medical conditions. Most people can lower their chances of developing kidney stones by following the instructions below. Your dietitian may give you more specific instructions depending on your overall health and the type of kidney stones you tend to develop. What are tips for following this plan? Reading food labels Choose foods with no salt added or low-salt labels. Limit your salt (sodium) intake to less than 1,500 mg a day. Choose foods with calcium for each meal and snack. Try to eat about 300 mg of calcium at each meal. Foods that contain 200 500 mg of calcium a serving include: ?8 oz (237 mL) of milk, dgqmwsk-bhabcijsssck-qatkh milk, and calcium-fortifiedfruit juice. Calcium-fortified means that calcium has been added to these drinks. ?8 oz (237 mL) of kefir, yogurt, and soy yogurt. ?4 oz (114 g) of tofu. ?1 oz (28 g) of cheese. ?1 cup (150 g) of dried figs. ?1 cup (91 g) of cooked broccoli. ?One 3 oz (85 g) can of sardines or mackerel. Most people need 1,000 1,500 mg of calcium a day. Talk to your dietitian about how much calcium is recommended for you. Shopping Buy plenty of fresh fruits and vegetables. Most people do not need to avoid fruits and vegetables, even if these foods contain nutrients that may contribute to kidney stones. When shopping for convenience foods, choose: ?Whole pieces of fruit. ?Pre-made salads with dressing on the side. ?Low-fat fruit and yogurt smoothies. Avoid buying frozen meals or prepared deli foods. These can be high in sodium. Look for foods with live cultures, such as yogurt and kefir. Choose high-fiber grains, such as whole-wheat breads, oat bran, and wheat cereals. Cooking Do not add salt to food when cooking. Place a salt shaker on the table and allow each person to add his or her own salt to taste. Use vegetable protein, such as beans, textured vegetable protein (TVP), or tofu, instead of meat in pasta, casseroles, and soups. Meal planning Eat less salt, if told by your dietitian. To do this: ?Avoid eating processed or pre-made food. ?Avoid eating fast food. Eat less animal protein, including cheese, meat, poultry, or fish, if told by your dietitian. To do this: ?Limit the number of times you have meat, poultry, fish, or cheese each week. Eat a diet free of meat at least 2 days a week. ?Eat only one serving each day of meat, poultry, fish, or seafood. ?When you prepare animal protein, cut pieces into small portion sizes. For most meat and fish, one serving is about the size of the palm of your hand. Eat at least five servings of fresh fruits and vegetables each day. To do this: ?Keep fruits and vegetables on hand for snacks. ?Eat one piece of fruit or a handful of berries with breakfast. ?Have a salad and fruit at lunch. ?Have two kinds of vegetables at dinner. Limit foods that are high in a substance called oxalate. These include: ?Spinach (cooked), rhubarb, beets, sweet potatoes, and [place] chard. ?Peanuts. ?Potato chips, bhutanese fries, and baked potatoes with skin on. ?Nuts and nut products. ?Chocolate. If you regularly take a diuretic medicine, make sure to eat at least 1 or 2 servings of fruits or vegetables that are high in potassium each day. These include: ?Avocado. ?Banana. ?[place], prune, carrot, or tomato juice. ?Baked potato. ?Cabbage. ?Beans and split peas. Lifestyle Drink enough fluid to keep your urine pale yellow. This is the most important thing you can do. Spread your fluid intake throughout the day. If you drink alcohol: ?Limit how much you use to: ?0 1 drink a day for women who are not . ?0 2 drinks a day for men. ?Be aware of how much alcohol is in your drink. In the [place] one drink equals one 12 oz bottle of beer (355 mL), one 5 oz glass of wine (148 mL), or one 1 oz glass of hard liquor (44 mL). Lose weight if told by your health care provider. Work with your dietitian to find an eating plan and weight loss strategies that work best for you. General information Talk to your health care provider and dietitian about taking daily supplements. You may be told the following depending on your health and the cause of your kidney stones: ?Not to take supplements with vitamin C. ?To take a calcium supplement. ?To take a daily probiotic supplement. ?To take other supplements such as magnesium, fish oil, or vitamin B6. Take zfiw-ndu-zkumgpu and prescription medicines only as told by your health care provider. These include supplements. What foods should I limit? Limit your intake of the following foods, or eat them as told by your dietitian. Vegetables Spinach. Rhubarb. Beets. Canned vegetables. Pickles. Olives. Baked potatoes with skin. Grains Wheat bran. Baked goods. Salted crackers. Cereals high in sugar. Meats and other proteins Nuts. Nut butters. Large portions of meat, poultry, or fish. Salted, precooked, or cured meats, such as sausages, meat loaves, and hot dogs. Dairy Cheese. Beverages Regular soft drinks. Regular vegetable juice. Seasonings and condiments Seasoning blends with salt. Salad dressings. Soy sauce. Ketchup. Barbecue sauce. Other foods Canned soups. Canned pasta sauce. Casseroles. Pizza. Lasagna. Frozen meals. Potato chips. [place] fries. The items listed above may not be a complete list of foods and beverages you should limit. Contact a dietitian for more information. What foods should I avoid? Talk to your dietitian about specific foods you should avoid based on the type of kidney stones you have and your overall health. Fruits Grapefruit. The item listed above may not be a complete list of foods and beverages you should avoid. Contact a dietitian for more information. Summary Kidney stones are deposits of minerals and salts that form inside your kidneys. You can lower your risk of kidney stones by making changes to your diet. The most important thing you can do is drink enough fluid. Drink enough fluid to keep your urine pale yellow. Talk to your dietitian about how much calcium you should have each day, and eat less salt and animal protein as told by your dietitian. This information is not intended to replace advice given to you by your health care provider. Make sure you discuss any questions you have with your health care provider. Document Revised: 03/11/2022 Document Reviewed: 03/11/2022 [employer] Patient Education 2022 [employer]. 04/02/2023 11:41:33 Hematuria, Adult Hematuria, Adult Hematuria is blood in the urine. Blood may be visible in the urine, or it may be identified with a test. This condition can be caused by infections of the bladder, urethra, kidney, or prostate. Other possible causes include: Kidney stones. Cancer of the urinary tract. Too much calcium in the urine. Conditions that are passed from parent to child (inherited conditions). Exercise that requires a lot of energy. Infections can usually be treated with medicine, and a kidney stone usually will pass through your urine. If neither of these is the cause of your hematuria, more tests may be needed to identify the cause of your symptoms. It is very important to tell your health care provider about any blood in your urine, even if it is painless or the blood stops without treatment. Blood in the urine, when it happens and then stops and then happens again, can be a symptom of a very serious condition, including cancer. There is no pain in the initial stages of many urinary cancers. Follow these instructions at home: Medicines Take gvhv-kwm-pdssmcm and prescription medicines only as told by your health care provider. If you were prescribed an antibiotic medicine, take it as told by your health care provider. Do not stop taking the antibiotic even if you start to feel better. Eating and drinking Drink enough fluid to keep your urine pale yellow. It is recommended that you drink 3 4 quarts (2.8 3.8 L) a day. If you have been diagnosed with an infection, drinking cranberry juice in addition to large amounts of water is recommended. Avoid caffeine, tea, and carbonated beverages. These tend to irritate the bladder. Avoid alcohol because it may irritate the prostate (in males). General instructions If you have been diagnosed with a kidney stone, follow your health care provider's instructions about straining your urine to catch the stone. Empty your bladder often. Avoid holding urine for long periods of time. If you are female: ?After a bowel movement, wipe from front to back and use each piece of toilet paper only once. ?Empty your bladder before and after sex. Pay attention to any changes in your symptoms. Tell your health care provider about any changes or any new symptoms. It is up to you to get the results of any tests. Ask your health care provider, or the department that is doing the test, when your results will be ready. Keep all follow-up visits. This is important. Contact a health care provider if: You develop back pain. You have a fever or chills. You have nausea or vomiting. Your symptoms do not improve after 3 days. Your symptoms get worse. Get help right away if: You develop severe vomiting and are unable to take medicine without vomiting. You develop severe pain in your back or abdomen even though you are taking medicine. You pass a large amount of blood in your urine. You pass blood clots in your urine. You feel very weak or like you might faint. You faint. Summary Hematuria is blood in the urine. It has many possible causes. It is very important that you tell your health care provider about any blood in your urine, even if it is painless or the blood stops without treatment. Take ifau-rlk-vsfvnsh and prescription medicines only as told by your health care provider. Drink enough fluid to keep your urine pale yellow. This information is not intended to replace advice given to you by your health care provider. Make sure you discuss any questions you have with your health care provider. Document Revised: 02/28/2021 Document Reviewed: 02/28/2021 [employer] Patient Education 2022 [employer]. Follow Up Care 03/31/2023 11:25:18 With:Cj FRAGOSO, Cyn Mercado, URL, [facility] Address: When:Within 3 Month(s) Comments:Karla and DANIA [facility] Evaluation + Plan note 02-11-2023 Laboratory Note Date & Type Note Facility 02-11-2023 Evaluation + Plan note Future Scheduled TestsPSA Total 02/11/23 [facility] Evaluation + Plan note Laboratory Note Date & Type Note Facility Evaluation + Plan note Future Appointments Appointment Date:04/07/2023 09:15:00 AM Scheduled Provider: Location:[facility] Appointment Type:Urology FT Future Scheduled TestsPSA Total 02/11/23 [facility] Evaluation + Plan note LaboratoryRadiology Note Date & Type Note Facility Evaluation + Plan note Future Appointments Appointment Date:04/07/2023 09:15:00 AM Scheduled Provider: Location:[facility] Appointment Type:Urology FT Appointment Date:07/09/2023 10:00:00 AM Scheduled Provider:Cyn Corona MD Location[facility] Appointment Type:URO Office Visit Future Scheduled TestsPSA Total 02/11/23XR Abdomen 1 View 04/02/23US Renal 04/02/23 [facility] Evaluation + Plan note LaboratoryRadiology Note Date & Type Note Facility Evaluation + Plan note Future Appointments Appointment Date:07/09/2023 10:00:00 AM Scheduled Provider:Cyn Corona MD Location:[facility] Appointment Type:URO Office Visit Future Scheduled TestsPSA Total 02/11/23XR Abdomen 1 View 04/02/23US Renal 04/02/23 [facility] Hospital course Narrative Note Date & Type Note Facility Hospital course Narrative No data available for this section [facility] Hospital Discharge instructions Note Date & Type Note Facility Hospital Discharge instructions No data available for this section [facility] Progress note Note Date & Type Note Facility Progress note No data available for this section [facility] Summary Purpose Family History No Family History Records Found No data available for this section Advance Directives No Advanced Directives Records Found Additional Source Comments Patient Care team informatio n (unrecognized section and content) Personnel Name: Darwin Garcia DO Address: Address: [address] [place] [address] Personnel Name: Darwin Garcia DO Address: Address: [address] [place] [address] Personnel Name: Darwin Garcia DO Address: Address: [address] [place] [address] Personnel Name: Darwin Garcia DO Address: Address: [address] [place] [address] Personnel Name: Darwin Garcia DO Address: Address: [address] [place] [address] [place] [id number] (unrecognized sect ion and content) No Status Records Found INFORMATION SOURCE (unrecogn ized section and content) DATE CREATED AUTHOR 06/23/2023 [facility] FOR RECORDS PERTAINING TO PATIENTS WHO ARE OR HAVE BEEN ENROLLED IN A CHEMICAL DEPENDENCY/SUBSTANCEABUSE PROGRAM, SOME INFORMATION MAY BE OMITTED. This clinical summary was aggregated from multiple sources. Caution should be exercised in using it in the provision of clinical care. This summary normalizes information from multiple sources, and as a consequence, information in this document may materially change the coding, format and clinical context of patient data. In addition, data may be omitted in some cases. CLINICAL DECISIONS SHOULD BE BASED ON THE PRIMARY CLINICAL RECORDS. [facility] [employer] [facility]. provides no warranty or guarantee of the accuracy or completeness of information in this document.
[2023-07-02] MEDS: LACTATED RINGER'S SOLUTION 1,000 ML 50 ML IV (12:02)
[2023-07-02] MEDS: CEFAZOLIN SODIUM/DEXTROSE,ISO 2 GM/50 ML PIGGYBACK IV (12:51)
[2023-07-02] MEDS: IOHEXOL 300 MG/ML - 50 ML BTL INJ (13:13)
--- NOTE | 2023-07-02 14:35 | P.URON_ITS ---
Urology Surgery Operative Note Operative Note Procedure Date: 07/02/23 Time Out Performed: yes Pre-op Diagnosis: Right kidney stone Post-op Diagnosis: same as pre-op Procedures performed: Cystoscopy, right retrograde pyelogram, ureteroscopy laser lithotripsy/stone extraction, stent placement Anesthesia: General-LMA Primary Surgeon: Cyn Corona Complications: none Estimated blood loss (mL): 1 Findings: Moderate-severe trilobar prostatic hypertrophy with moderate intravesical median lobe. 2+ trabeculated bladder. No bladder tumors or lesions. Right RPG without filling defects or hydronephrosis, narrow UO Right UO mildly tight, unable to accommodate 11/13Fr ureteral access sheath. 8x10mm right upper pole stone underwent uncomplicated laser lithotripsy and stone extraction Specimens: right kidney stone Drains: 4.8Fr x 22-30 cm JJ right ureteral stent on string Incision: none Indications for Procedures: 63 year old male with a solitary kidney was diagnosed with an 8 mm right kidney stone and presents for definitive stone treatment. After discussion of risks/benefits of management options, he elected to proceed with cystoscopy, right retrograde pyelogram, ureteroscopy with laser lithotripsy/stone extraction, ureteral stent placement under general anesthesia. Risks were discussed including but not limited to bleeding, pain, infection, damage to surrounding structures, inability to treat the stone/place a stent, and need for additional procedures. The patient understands the stent is not permanent and n eeds to be removed or exchanged within 3 months to prevent encrustation, infection, invasive procedures and/or permanent renal damage. Detailed description of Procedure: After informed consent was obtained, the patient was brought to the operating room and transferred onto the operating table in supine position. Sequential compression devices were placed on bilateral lower extremities. The patient received the appropriate dose of preoperative IV antibiotics and general anesthesia LMA was induced. They were positioned in modified dorsolithotomy with the appropriate pressure points padded, prepped, and draped in the usual sterile fashion for this procedure. An operative safety timeout was performed confirming the patient's identity, laterality and procedure, and all present agreed to proceed. I began by inserting a 22 [place] rigid cystoscope with 30 degree lens into the patient's urethra and bladder without difficulty. A full cystoscopy with a 30 and 70 degree lens was performed. There were no bladder tumors, lesions, stones or foreign bodies. Bilateral ureteral orifices were orthotopic and patent. Of note, his hydrocele and high bladder neck limited movements. I turned my attention to the right ureteral orifice and a 6- [place] open-ended catheter was inserted into the ureteral orifice and dilute contrast was injected for retrogra de pyelogram with findings as above. A Sensor wire was inserted into the ureter up to the renal pelvis confirmed on fluoroscopy. An 11/13 [place] by 36 cm ureteral access sheath was inserted over the wire in a sequential fashion to gain access to the renal pelvis. However the 13Fr sheath was unable to bypass the UO. A 10/12Fr x 35 cm ureteral access sheath was used to gain access to the renal pelvis. Next a flexible ureteroscope was inserted through the sheath and advanced to the renal pelvis under fluoroscopic guidance. A renoscopy was performed noted a stone in a lower calyx of the upper pole system. A 200 ?m Thulium YAG laser fiber was used to break the stone into fragments which were then removed with a 1.8 tipless nitinol basket. After the stone was adequately treated, a full renoscopy was performed confirming no significant residual stones or fragments remained. Contrast was injected to assist with mapping for the renoscopy. The wire was reinserted and a pull down ureteroscopy was performed confirming no stones remained in the ureter. A 4.8Fr x 22-30cm JJ variable length ureteral stent on a string was advanced over the wire, noting adequate curl in the renal pelvis and bladder on fluoroscopic and direct visualization. The cystoscope was inserted, bladder was drained and inspected one final time to ensure adequate position of stent and no undue trauma to the bladder was done. The stones were sent for pathology and the cystoscope was removed. The string was secured to the ventral phallus with Tegaderm. The patient tolerated the procedure well without complication. The patient was awakened from anesthesia and sent to PACU in stable condition. Plan: Discharge home with stent pain medications. Remove stent by the string at home in 4 days. Follow up in 6 wks with renal US. Other Provider present: No Post Operative care instructions: See discharge instructions Attending Doc Confirm Attending Attestation: Yes
--- NOTE | 2023-07-02 14:58 | PC.NURSE ---
blood tinged urine
[2023-07-02] MEDS: ACETAMINOPHEN 325 MG TABLET 650 MG PO (15:02)
--- NOTE | 2023-07-02 15:04 | PC.NURSE ---
gave pain meds for back pain after movement ...going to the bathroom
--- NOTE | 2023-07-02 15:13 | PC.NURSE ---
patient having flank paian gave tylenol for a 5 pain. blood pressure is elevated .
[2023-07-02] MEDS: LABETALOL HCL 20 MG/4 ML SYRINGE 2.5 MG IVP (15:47)
--- NOTE | 2023-07-02 15:54 | PC.NURSE ---
Patient is in phase II , blood pressure continues to elevate. Spoke to Dr Corona and she spoke to Anesthesia Physician to give low dose of IV blood pressure meds. Meds given. reassessed after . will reassess in a few minutes.
--- NOTE | 2023-07-02 16:31 | PC.NURSE ---
patient was up to the bathroom became nauseated and vomited but states he feels better. patient states he is ready to go home and was advised by Dr. Corona and Dr. Alejandra to see primary care physician to have blood pressures regulated.
[2023-07-09 21:07] LABS: Calcium Oxalate Dihydrate 10 % (.); Calcium Oxalate Monohydrate 90 % (.); Size 4x3 mm (.)
== END 2023-07-02 16:37 | disposition home or self-care (01) ==
PROVIDERS: Visit Provider Urology
PROC: (CPT 918; principal; 2023-07-02 12:30)
DX: N20.0 Calculus of kidney (principal); N32.89 Other specified disorders of bladder; R35.1 Nocturia; N43.3 Hydrocele, unspecified; N50.89 Other specified disorders of the male genital organs; R35.0 Frequency of micturition; R31.21 Asymptomatic microscopic hematuria; Z90.5 Acquired absence of kidney
CPT/HCPCS: 52356; 36415; 74420; 82365; 99999; C1874; J2704; Q9967